=== PATIENT | female | born 1950 | race Caucasian/White ===

== ENCOUNTER → 2018-06-29 13:50 | Outpatient (CLI) | payer MEDICARE, SELFPAY ==
--- NOTE | 2018-06-29 | DI.CT.S_ITS ---
PROCEDURE: CT CHEST ABD PEL W CON INDICATIONS: MALIGNANT NEOPLASM LEFT LOWER LIMB, PERSONAL HISTORY OF BREAST CANCER TECHNIQUE: After the administration of oral and intravenous contrast, 5 mm thick sections acquired from the lung apices to the symphysis. 5 mm coronal and sagittal reformats were performed, with additional 7 mm coronal MIP reformats through the lungs. For radiation dose reduction, the following was used: automated exposure control, adjustment of mA and/or kV according to patient size. COMPARISON: [facility], CR, XR HIP W PEL IF DONE LT 2V, 06/29/2018, 14:04. [facility], CT, ABDOMEN/PELVIS WITH CONTRAST, 05/11/2016, 10:24. FINDINGS: Image quality: Excellent. CHEST: Lungs and pleura: There is subpleural scarring anteriorly in the right upper and middle lobes consistent with postradiation changes. No suspicious nodules or mass lesions. No pleural effusions or pneumothorax. Central and peripheral airways appear patent and normal in caliber. Mediastinum: Heart size is normal. No pericardial effusion. No mediastinal or hilar adenopathy by size criteria. Thoracic aorta and central pulmonary arteries are normal in size. Esophagus is normal in caliber. No hiatal hernia. Chest wall: There are surgical clips in the right breast. No axillary or supraclavicular adenopathy by size criteria. Thyroid gland demonstrates no discrete nodules. ABDOMEN: Solid organs: A few small scattered hypodense foci are redemonstrated in the liver, too small to characterize but similar in appearance compared to the prior study. The findings likely represent cysts. A small hypodensity laterally in the left hepatic lobe measuring 5 mm on series 2 image 54 is not definitely visualized on the prior study although this may represent volume averaging artifact. The gallbladder is surgically absent. Biliary system is non dilated. Pancreas enhances normally. Spleen is normal in size and enhancement. No adrenal nodules. Kidneys demonstrate no hydronephrosis. Peritoneum and bowel: Bowel loops demonstrate normal wall thickness and caliber. No free fluid or air. Nodes and vessels: No retroperitoneal or mesenteric adenopathy by size criteria. Aorta and inferior vena cava are normal in size. Miscellaneous: No ventral hernias. PELVIS: Genitourinary: Bladder wall thickness is normal. Miscellaneous: No inguinal hernias or adenopathy. Bones: There is irregular cortical thickening with lucency in the anterior left infra-trochanteric femoral shaft corresponding to the lytic lesion seen on recent x-ray. Elsewhere, no definite additional suspicious bony lesions identified. No vertebral body compression fractures. IMPRESSION: 1. Abnormal lucent cortical lesion within the proximal left femur corresponding to the finding on recent x-ray high suspicious for metastatic disease. 2. No definite additional suspicious bony lesions. Recommend further evaluation with bone scan. 3. Elsewhere, no definite evidence of metastatic disease. Dictated by: Xander Corral M.D. on 06/29/2018 at 17:17 Approved by: Xander Corral M.D. on 06/29/2018 at 17:23
--- NOTE | 2018-06-29 | DI.RAD.S_ITS ---
PROCEDURE: XR HIP W PEL IF DONE LT 2V INDICATIONS: MALIGNANT NEOPLASM OF LEFT LOWER LIMB TECHNIQUE: 3 views of the hip were acquired. COMPARISON: MRI left hip dated 06/28/18.. FINDINGS: Bones: There is an ill-defined, subtle lucent lesion within the left proximal femur correlating with intramedullary osseous lesion seen on comparison MRI dated 06/28/18. It measures approximately 5.8 x 2.8 x 4.4 cm. There is mild thinning and irregularity of the medial cortex without obvious cortical distraction or suspicious periosteal reaction. No associated soft tissue mass. No acute fracture. No other suspicious intraosseous lesions identified in the visualized portions of the proximal femora and pelvis. Soft tissue calcifications overlying the left greater trochanter compatible with sequela of chronic tendinopathy. There is also heterotopic calcification/ossification of the right upper leg which also likely represents sequela of chronic inflammation. Degenerative changes of the bilateral hip as before. The visualized pelvic ring appears intact. Soft tissues: No suspicious soft tissue calcifications or masses. IMPRESSION: Subtle 5.8 cm intramedullary lytic lesion within the proximal left femur compatible with intraosseous mass seen on recent MRI. No acute fracture or suspicious calcifications identified. Dictated by: Giovanni James M.D. on 06/29/2018 at 15:05 Approved by: Giovanni James M.D. on 06/29/2018 at 15:14
[2018-06-29 14:40] LABS: Blood Urea Nitrogen 17 mg/dL (7-17)
[2018-06-29 15:24] LABS: BUN Creatinine Ratio 28.3 (6-22); Estimated Glomerular Filt Rate > 60.0 mL/min (>60)
== END ==
PROVIDERS: Family Provider Physician Assistant; PCP Physician Assistant; Visit Provider Student in an Organized Health Care Education/Training Program
DX: C76.52 Malignant neoplasm of left lower limb (principal); Z85.3 Personal history of malignant neoplasm of breast
CPT/HCPCS: 36415; 71260; 73502; 74177; 82565; 84520; Q9967

== ENCOUNTER → 2018-07-05 07:37 | Outpatient (CLI) | payer MEDICARE, SELFPAY ==
--- NOTE | 2018-07-05 | DI.NM.S_ITS ---
PROCEDURE: NM BONE SCAN WHOLE BODY RADIOPHARMACEUTICAL: 20.1 mCi Tc-99m MDP IV. INDICATIONS: PERSONAL HISTORY OF MALIGNANT NEOPLASM OF BREAST TECHNIQUE: Delayed whole-body scintigrams were obtained approximately 3-4 hours after intravenous injection of radiotracer. COMPARISON: [facility] [place], CR, XR PELVIS WITH LATERAL HIP LEFT, 06/26/2018, 14:43. [facility], CR, XR HIP W PEL IF DONE LT 2V, 06/29/2018, 14:04. [facility], CR, XR HIP 2 VIEWS WITH OR WITHOUT AP PELVIS LEFT, 10/10/2017, 10:43. [facility], CR, XR HIP 2 VIEWS LEFT, 04/09/2018, 13:31. [facility], MR, MR HIP LEFT WITHOUT CONTRAST, 06/28/2018, 11:48. [facility], CT, CT CHEST ABD PEL W CON, 06/29/2018, 15:23. FINDINGS: There is intense abnormal uptake in the proximal left femur, consistent with metastasis. Increased uptake in the left anterior iliac spine may be due to position. The comparison CT dated 06/29/2018 showed no lytic or blastic bone lesion. No lesions are identified in skull, sternum, clavicles, scapulae, ribs, bony pelvis. There is low level increased uptake in 8 thoracic and lower lumbar spine compatible with degenerative changes. There are foci of increased periarticular activity involving right knee and right foot, compatible with degenerative/arthritic changes. Increased activity in the paranasal region may be secondary to sinus disease. IMPRESSION: 1. Intense abnormal uptake in proximal left femur consistent with metastasis. Dictated by: Michelle Carter M.D. on 07/05/2018 at 15:35 Approved by: Michelle Carter M.D. on 07/05/2018 at 18:40
== END ==
PROVIDERS: Family Provider Physician Assistant; PCP Physician Assistant; Visit Provider Student in an Organized Health Care Education/Training Program
DX: C76.52 Malignant neoplasm of left lower limb (principal); Z85.3 Personal history of malignant neoplasm of breast
CPT/HCPCS: 78306; A9503

== ENCOUNTER → 2024-10-23 12:45 | Outpatient (CLI) | payer MEDICARE, SELFPAY ==
--- NOTE | 2024-10-23 | DI.MRI.S_ITS ---
PROCEDURE: MR HEAD/BRAIN WO/W CON INDICATIONS: breast cancer TECHNIQUE: Noncontrast axial T1 spin echo, axial T2 fast spin echo, sagittal and axial FLAIR, coronal T2 fast spin echo, axial gradient echo, axial diffusion and ADC through the brain. After the administration of contrast, axial and coronal and sagittal T1 spin echo with fat saturation through the brain. COMPARISON: None. FINDINGS: Image quality: Excellent. CSF spaces: Basal cisterns are patent. No extra-axial fluid collections. Ventricles are normal in size and shape. Brain: No midline shift. No intracranial bleeds or masses. No abnormal intracranial enhancement. There is cerebral volume loss for age. There is periventricular white matter chronic small vessel ischemic change. The brainstem appears normal. Diffusion-weighted images demonstrate no acute infarct. No chronic ischemic insults. Normal intravascular flow voids are present. Skull and face: Calvarial marrow is normal in signal. Orbits appear normal. Note is made of bilateral lens replacements. Sinuses: Sinuses and mastoids appear clear. IMPRESSION: No masses or abnormal enhancement can be seen. Dictated by: Joshua Irwin M.D. on 10/23/2024 at 13:54 Approved by: Joshua Irwin M.D. on 10/23/2024 at 13:55
== END ==
LOC: MRI 12:46
PROVIDERS: Family Provider Physician Assistant; PCP Physician Assistant; Referring Provider Internal Medicine Hematology & Oncology; Visit Provider Internal Medicine Hematology & Oncology
DX: C50.912 Malignant neoplasm of unspecified site of left female breast (principal); C79.51 Secondary malignant neoplasm of bone; Z15.01 Genetic susceptibility to malignant neoplasm of breast; Z15.09 Genetic susceptibility to other malignant neoplasm
CPT/HCPCS: 70553; A9579